=== PATIENT | female | born 1985 | race Caucasian/White ===

== ENCOUNTER 2023-07-26 08:37 | Emergency (ER) | payer MEDICAID ==
[~2023-07-26] VITALS: Ht 167.6 cm; Wt 70.3 kg
[2023-07-26] MEDS ORDERED: IV NORMAL SALINE 1000 ML BAG IV ONE (08:45)
[2023-07-26] MEDS ORDERED: ONDANSETRON 4 MG/2 ML VIAL IV ONE (08:45)
[2023-07-26] MEDS ORDERED: ONDANSETRON 4 MG/2 ML VIAL ONE (09:04)
[2023-07-26 09:10] LABS: *BILIRUBIN,URIN NEGATIVE (NEGATIVE); *BLOOD, URINE 1+ (NEGATIVE); *CLARITY,URINE CLEAR (CLEAR); *COLOR,URINE YELLOW (YELLOW); *KETONES,URINE NEGATIVE (NEGATIVE); *PROTEIN,URINE NEGATIVE (NEGATIVE); *UROBILINOGEN,URINE 0.2 E.U./dl (NORMAL); LEUKOCYTE ESTERASE ,URINE 1+ (NEGATIVE); NITRITE, URINE NEGATIVE (NEGATIVE); UGLUCOSE NEGATIVE (NEGATIVE)
[2023-07-26] MEDS ORDERED: predniSONE 50 MG TABLET ONE (09:15)
[2023-07-26] MEDS ORDERED: predniSONE 20 MG TABLET PO ONE (09:15)
[2023-07-26] MEDS ORDERED: diphenhydrAMINE 50 MG/1 ML VIAL IV ONE (09:15)
[2023-07-26] MEDS ORDERED: FAMOTIDINE. 20 MG/2 ML VIAL IV ONE ×2 (09:15)
[2023-07-26] MEDS ORDERED: diphenhydrAMINE 50 MG/1 ML VIAL ONE (09:16)
[2023-07-26] MEDS ORDERED: predniSONE 10 MG TABLET ONE (09:16)
[2023-07-26 09:36] LABS: PREGNANCY TEST SERUM QUAN < 1 miul/L (0-6)
[2023-07-26 09:42] LABS: ALANINE AMINOTRANSFERASE 21 U/L (14-59); ALBUMIN 3.8 g/dL (3.4-5.0); ALKALINE PHOSPHATASE 55 U/L (50-136); ASPARTATE AMINOTRANSFERASE 15 U/L (15-37); BILIRUBIN,DIRECT 0.2 mg/dL (0.0-0.2); BILIRUBIN,TOTAL 0.4 mg/dL (0.2-1.0); CALCIUM 8.6 mg/dL (8.5-10.1); CARBON DIOXIDE 26 mmol/L (21-32); CHLORIDE 102 mmol/L (98-107); CREATININE 0.8 mg/dL (0.6-1.3); GLUCOSE 102 mg/dL (74-106); POTASSIUM 3.6 mmol/L (3.5-5.1); SODIUM SERUM 137 mmol/L (136-145); TOTAL PROTEIN, SERUM 7.7 g/dL (6.4-8.2); UREA NITROGEN, BLOOD 11 mg/dL (7-18)
[2023-07-26 09:52] LABS: LIPASE 85 U/L (73-393)
[2023-07-26 10:33] LABS: BACTERIA,URINE MANY /HPF (NONE SEEN); SQUAMOUS EPITHELIAL CELL,UR MODERATE /HPF (NONE SEEN)
[2023-07-26] MEDS ORDERED: NITR100C6 PO (10:59)
[2023-07-26] MEDS ORDERED: DIPH25CA83 PO (10:59)
[2023-07-26] MEDS ORDERED: FAMO-132 PO (10:59)
[2023-07-26] MEDS ORDERED: PRED20TA PO (10:59)
[2023-07-26 11:45] VITALS: BP 128/65; TEMP 98.1; O2SAT 97
== END 2023-07-26 11:46 | disposition home or self-care (01) ==
LOC: ER 08:37
DX: T78.40XA Allergy, unspecified, initial encounter (principal); R10.2 Pelvic and perineal pain; L50.9 Urticaria, unspecified; N39.0 Urinary tract infection, site not specified; Y92.89 Other specified places as the place of occurrence of the external cause
CPT/HCPCS: 99284; 96374; 96361; 96375; 80076; 80048; 81001; 83690; 84702; 36415; J7512 ×2; J1200; J3490; J2405; J7040; A4663